=== PATIENT | male | born 1985 | race Caucasian/White ===

== ENCOUNTER 2022-08-15 00:57 | Observation (INO) | payer BC ==
[~2022-08-15] VITALS: Ht 182.9 cm; Wt 121.9 kg
[2022-08-15] MEDS ORDERED: dilTIAZem DRIP PRE-MIX 125 ML IV SCH (01:15)
[2022-08-15] MEDS ORDERED: dilTIAZem DRIP PRE-MIX 125 ML IV ONE (01:19)
[2022-08-15 01:21] LABS: BASOPHILS % (AUTO) 0 % (0-10); EOSINOPHILS # (AUTO) 0.2 10^3/uL (0.0-0.3); EOSINOPHILS % (AUTO) 3 % (0-10); HEMATOCRIT 45 % (40-54); HEMOGLOBIN 15.5 g/dL (13.3-17.7); LYMPHOCYTES # (AUTO) 2.8 10^3/uL (1.0-4.0); LYMPHOCYTES % (AUTO) 39 % (12-44); MEAN CORPUSCULAR HEMOGLOBIN 29 pg (25-34); MEAN CORPUSCULAR HGB CONC 35 g/dL (32-36); MEAN CORPUSCULAR VOLUME 85 fL (80-99); MEAN PLATELET VOLUME 11.9 fL (9.0-12.2); MONOCYTES # (AUTO) 0.8 10^3/uL (0.0-1.0); MONOCYTES % (AUTO) 11 % (0-12); NEUTROPHILS # (AUTO) 3.4 10^3/uL (1.8-7.8); NEUTROPHILS % (AUTO) 47 % (42-75); PLATELET COUNT 220 10^3/uL (130-400); WHITE BLOOD COUNT 7.2 10^3/uL (4.3-11.0)
[2022-08-15 01:31] LABS: ALBUMIN 4.7 GM/DL (3.2-4.5)
[2022-08-15 01:32] LABS: CHLORIDE 106 MMOL/L (98-107); POTASSIUM 3.9 MMOL/L (3.6-5.0); SODIUM 140 MMOL/L (135-145)
[2022-08-15 01:33] LABS: CALCIUM 9.8 MG/DL (8.5-10.1)
[2022-08-15 01:34] LABS: GLUCOSE 88 MG/DL (70-105)
[2022-08-15 01:35] LABS: CARBON DIOXIDE 23 MMOL/L (21-32)
[2022-08-15 01:36] LABS: BILIRUBIN,TOTAL 0.9 MG/DL (0.1-1.0)
[2022-08-15 01:38] LABS: ALKALINE PHOSPHATASE 70 U/L (40-136); GFR ESTIMATED 67
[2022-08-15 01:39] LABS: BUN/CREATININE RATIO 10
[2022-08-15 01:41] LABS: ALANINE AMINOTRANSFERASE 71 U/L (0-55); MAGNESIUM 2.1 MG/DL (1.6-2.4)
[2022-08-15] MEDS ORDERED: ASPIRIN 325 MG (5 GR) TABLET PO ONE (02:00)
[2022-08-15] MEDS ORDERED: APIXABAN 5 MG (ELIQUIS) TABLET PO ONE (02:00)
[2022-08-15 02:01] LABS: TSH (THYROID ANALYZER) 2.38 UIU/ML (0.35-4.94)
--- NOTE | 2022-08-15 02:04 | ED Cardiac General ---
History of Present Illness General Chief Complaint: Cardiac/General Problems Stated Complaint: RAPID HEARTBEAT Source: patient Exam Limitations: no limitations History of Present Illness Date Seen by Provider: Aug 15, 2022 Time Seen by Provider: 01:09 Initial Comments This 37-year-old gentleman presents to the emergency room with sudden onset of rapid palpitations around midnight when he got out of the shower. He denies any chest pain or shortness of breath. He is found to be in atrial fibrillation with RVR when placed on the monitor during assessment. He denies any prior history of episodes or diagnosis of atrial fibrillation. His only significant health history is sleep apnea for which she uses CPAP. His primary care provider is Dr. Madrid. Allergies and Home Medications Allergies Coded Allergies: No Known Drug Allergies (Unverified , 08/15/22) Patient Home Medication List Home Medication List Reviewed: Yes Review of Systems Review of Systems Constitutional: no symptoms reported EENTM: No Symptoms Reported Respiratory: No Symptoms Reported Cardiovascular: See HPI Gastrointestinal: No Symptoms Reported Genitourinary: No Symptoms Reported Musculoskeletal: no symptoms reported Skin: no symptoms reported Psychiatric/Neurological: No Symptoms Reported Endocrine: No Symptoms Reported Hematologic/Lymphatic: No Symptoms Reported Past Aaqfnjx-Jwkyix-Tqxleo Hx Patient Social History Tobacco Use?: No Use of E-Cig and/or Vaping dev: Yes E-Cig or Vaping type used: Nicotine Use of E-Cig and/or Vaping Mark: Current Everyday User Substance use?: No Alcohol Use?: Yes Alcohol Frequency: Once in a while Past Medical History Surgeries: Yes Orthopedic (Right tricep surgery) Respiratory: Yes Sleep Apnea Cardiac: No Neurological: No Reproductive Disorders: No Genitourinary: No Gastrointestinal: No Musculoskeletal: No Endocrine: No HEENT: No Cancer: No Psychosocial: No Integumentary: No Physical Exam Vital Signs Vital Signs - First Documented 08/15/22 01:08 Temp 36.8 Pulse 158 Resp 18 B/P (MAP) 149/109 (122) Pulse Ox 98 O2 Delivery Room Air Capillary Refill : Height, Weight, BMI Height: '" Weight: lbs. oz. kg; BMI Method: General Appearance: No Apparent Distress, WD/WN, Obese HEENT: PERRL/EOMI, Normal ENT Inspection Neck: Normal Inspection; No JVD Respiratory: Lungs Clear, Normal Breath Sounds, No Accessory Muscle Use Cardiovascular: No Edema, No Murmur, Irregularly Irregular, Tachycardia Gastrointestinal: Non Tender, Soft Extremity: Normal Inspection, No Pedal Edema Neurologic/Psychiatric: Alert, Oriented x3, No Motor/Sensory Deficits, Normal Mood/Affect Skin: Normal Color, Warm/Dry Progress/Results/Core Measures Results/Orders Lab Results Laboratory Tests Test 08/15/22 01:13 Range/Units White Blood Count 7.2 4.3-11.0 10^3/uL Red Blood Count 5.28 4.30-5.52 10^6/uL Hemoglobin 15.5 13.3-17.7 g/dL Hematocrit 45 40-54 % Mean Corpuscular Volume 85 80-99 fL Mean Corpuscular Hemoglobin 29 25-34 pg Mean Corpuscular Hemoglobin Concent 35 32-36 g/dL Red Cell Distribution Width 12.0 10.0-14.5 % Platelet Count 220 130-400 10^3/uL Mean Platelet Volume 11.9 9.0-12.2 fL Immature Granulocyte % (Auto) 0 % Neutrophils (%) (Auto) 47 42-75 % Lymphocytes (%) (Auto) 39 12-44 % Monocytes (%) (Auto) 11 0-12 % Eosinophils (%) (Auto) 3 0-10 % Basophils (%) (Auto) 0 0-10 % Neutrophils # (Auto) 3.4 1.8-7.8 10^3/uL Lymphocytes # (Auto) 2.8 1.0-4.0 10^3/uL Monocytes # (Auto) 0.8 0.0-1.0 10^3/uL Eosinophils # (Auto) 0.2 0.0-0.3 10^3/uL Basophils # (Auto) 0.0 0.0-0.1 10^3/uL Immature Granulocyte # (Auto) 0.0 0.0-0.1 10^3/uL Sodium Level 140 135-145 MMOL/L Potassium Level 3.9 3.6-5.0 MMOL/L Chloride Level 106 98-107 MMOL/L Carbon Dioxide Level 23 21-32 MMOL/L Anion Gap 11 5-14 MMOL/L Blood Urea Nitrogen 14 7-18 MG/DL Creatinine 1.40 H 0.60-1.30 MG/DL Estimat Glomerular Filtration Rate 67 BUN/Creatinine Ratio 10 Glucose Level 88 70-105 MG/DL Calcium Level 9.8 8.5-10.1 MG/DL Corrected Calcium 8.5-10.1 MG/DL Magnesium Level 2.1 1.6-2.4 MG/DL Total Bilirubin 0.9 0.1-1.0 MG/DL Aspartate Amino Transf (AST/SGOT) 38 H 5-34 U/L Alanine Aminotransferase (ALT/SGPT) 71 H 0-55 U/L Alkaline Phosphatase 70 40-136 U/L Total Protein 8.0 6.4-8.2 GM/DL Albumin 4.7 H 3.2-4.5 GM/DL TSH [place] Testing 2.38 0.35-4.94 UIU/ML My Orders Orders - ADRIENNE ALVES MD Ekg Tracing (08/15/22 01:07) Cbc With Automated Diff (08/15/22 01:15) Comprehensive Metabolic Panel (08/15/22 01:15) Magnesium (08/15/22 01:15) Thyroid Analyzer (08/15/22 01:15) Ed Iv/Invasive Line Start (08/15/22 01:15) Monitor-Rhythm Ecg Trace Only (08/15/22 01:15) Diltiazem Drip Pre-Mix (Cardizem Drip Pr (08/15/22 01:15) Diltiazem Injection (Cardizem Injection) (08/15/22 01:15) Chest 1 View, Ap/Pa Only (08/15/22 01:18) Diltiazem Drip Pre-Mix (Cardizem Drip Pr (08/15/22 01:19) Diltiazem Injection (Cardizem Injection) (08/15/22 01:19) Aspirin Tablet (Aspirin Tablet) (08/15/22 02:00) Apixaban Tablet (Eliquis Tablet) (08/15/22 02:00) Medications Given in ED Current Medications Medications Dose Ordered Sig/Toro Route Start Time Stop Time Status Last Admin Dose Admin Apixaban 5 mg ONCE ONCE PO 08/15/22 02:00 08/15/22 02:01 DC 08/15/22 02:47 5 MG Aspirin 325 mg ONCE ONCE PO 08/15/22 02:00 08/15/22 02:01 DC 08/15/22 02:48 325 MG Diltiazem HCl 10 mg ONCE ONCE IVP 08/15/22 01:15 08/15/22 01:18 DC 08/15/22 01:24 10 MG Vital Signs/I&O 08/15/22 08/15/22 08/15/22 01:08 01:24 01:25 Temp 36.8 Pulse 158 171 171 Resp 18 B/P (MAP) 149/109 (122) 147/116 147/116 Pulse Ox 98 O2 Delivery Room Air Blood Pressure Mean: 126 Progress Progress Note : Time: 02:09 Progress Note EKG confirmed A. fib with RVR. Work-up was otherwise relatively unremarkable. Patient had good response to Cardizem bolus and drip. He remains in atrial fibrillation with rate controlled. I discussed the case with Dr. Long who requested anticoagulation be initiated. Aspirin was also administered. Dr. Palma accepts admission. Initial ECG Impression Date: Aug 15, 2022 Initial ECG Impression Time: 01:03 Initial ECG Rate: 150 Initial ECG Rhythm: A Fib/Flutter Initial ECG Impression: Atrial Fibrillation w/RVR Comment Atrial fibrillation with RVR and PVCs. No ST elevation or depression. No abnormal intervals or axis deviation. Diagnostic Imaging Diagonstic Imaging: Xray Plain Films/CT/US/NM/MRI: chest Comments Chest x-ray viewed by me. Report not yet available. No acute abnormality appreciated. Departure Communication (Admissions) Time/Spoke to Admitting Phy: 02:02 Dr. Palma Time/Spoke to Consulting Phy: 02:00 Dr. Long Impression Primary Impression: Atrial fibrillation with RVR Additional Impression: New onset atrial fibrillation Disposition: ADMITTED INPATIENT Condition: Improved Admissions Decision to Admit Reason: Admit from ER (General) Decision to Admit/Date: Aug 15, 2022 Time/Decision to Admit Time: 02:00 Departure-Patient Inst. Referrals: SHADIA MADRID MD (PCP/Family) Primary Care Physician Copy Copies To 1: SHADIA MADRID MD, JOSHUA T MD Aug 15, 2022 02:04
[2022-08-15] MEDS ORDERED: dilTIAZem DRIP 125 MG/125 ML DRIP IV SCH (03:15)
[2022-08-15] MEDS ORDERED: NS IV 1000 ML 1,000 ML IV SCH (03:15)
[2022-08-15 03:29] VITALS: BP 120/85
[2022-08-15] MEDS ORDERED: LACTATED RINGERS 1,000 ML IV SCH (04:00)
[2022-08-15 04:13] LABS: BASOPHILS % (AUTO) 1 % (0-10); EOSINOPHILS # (AUTO) 0.2 10^3/uL (0.0-0.3); EOSINOPHILS % (AUTO) 3 % (0-10); HEMATOCRIT 43 % (40-54); HEMOGLOBIN 14.9 g/dL (13.3-17.7); LYMPHOCYTES # (AUTO) 2.8 10^3/uL (1.0-4.0); LYMPHOCYTES % (AUTO) 44 % (12-44); MEAN CORPUSCULAR HEMOGLOBIN 29 pg (25-34); MEAN CORPUSCULAR HGB CONC 35 g/dL (32-36); MEAN CORPUSCULAR VOLUME 85 fL (80-99); MEAN PLATELET VOLUME 11.8 fL (9.0-12.2); MONOCYTES # (AUTO) 0.6 10^3/uL (0.0-1.0); MONOCYTES % (AUTO) 9 % (0-12); NEUTROPHILS # (AUTO) 2.8 10^3/uL (1.8-7.8); NEUTROPHILS % (AUTO) 44 % (42-75); PLATELET COUNT 210 10^3/uL (130-400); WHITE BLOOD COUNT 6.4 10^3/uL (4.3-11.0)
[2022-08-15] MEDS ORDERED: LACTATED RINGERS 1,000 ML IV ONE (04:17)
[2022-08-15 04:34] LABS: BILIRUBIN,TOTAL 0.9 MG/DL (0.1-1.0); CREATININE SERUM 1.15 MG/DL (0.60-1.30); MAGNESIUM 2.1 MG/DL (1.6-2.4); PHOSPHORUS 4.1 MG/DL (2.3-4.7); POTASSIUM 4.1 MMOL/L (3.6-5.0); TOTAL PROTEIN 6.9 GM/DL (6.4-8.2)
--- NOTE | 2022-08-15 07:10 | Diagnostic Imaging Report ---
Indication: Chest pain. Comparison: None. Discussion: Single portable upright view of the chest was obtained. Normal heart size. No consolidation, pleural fluid, or pneumothorax. No osseous abnormality. Impression: 1. Negative portable chest. Dictated by: Dictated on workstation # [id number]
[2022-08-15] MEDS ORDERED: APIXABAN 5 MG (ELIQUIS) TABLET PO SCH (09:00)
--- NOTE | 2022-08-15 09:33 | Tele-ICU Progress Note ---
Subjective Date Seen by a Provider: Aug 15, 2022 Time Seen by a Provider: 09:27 Subjective/Events-last exam (Tele-ICU Physician , consultation) Available chart/ vitals / labs / Images reviewed H&P is from ER notes Patient's information available about PMH, allergy reviewed in EMR. ROS as per chart and RN report Video assessment done using teleICU camera, rest of exam as per RN Discussed with RN. Is a 37-year-old male with past medical history of obesity and sleep apnea and using CPAP on and off now presented to the emergency room with palpitations. He is found to have a atrial fibrillation with rapid ventricular rate. He is started on a Cardizem drip and this a.m. he is converted to normal sinus rhythm. Currently he denies any chest pain nausea vomiting dizziness. This is the first time he had a atrial fibrillation. He is started on eliquis. Review of Systems ROS PER RN Sepsis Event Evaluation Height, Weight, BMI Height: '" Weight: lbs. oz. kg; 36.43 BMI Method: Exam Exam Patient acknowledged, consented, and participated in this virtual visit which was conducted using real time audio/video Vital Signs Date Time Temp Pulse Resp B/P (MAP) Pulse Ox O2 Delivery O2 Flow Rate FiO2 08/15/22 08:00 93 9 130/98 (109) 97 Room Air 08/15/22 07:00 96 17 92/66 (75) 97 Room Air 08/15/22 07:00 106 08/15/22 06:00 108 12 118/76 (90) 98 Room Air 08/15/22 05:00 115 16 121/77 (92) 97 Room Air 08/15/22 03:45 112 13 113/82 (92) 98 Room Air 08/15/22 03:30 117 13 128/65 (86) 96 Room Air 08/15/22 03:29 125 120/85 08/15/22 03:21 105 08/15/22 03:15 36.0 109 24 120/85 (97) 97 Room Air 08/15/22 03:15 109 24 97 Room Air 08/15/22 03:03 36.8 111 16 114/85 98 Room Air 08/15/22 03:00 109 24 120/85 (97) 97 Room Air 08/15/22 01:25 171 147/116 08/15/22 01:24 171 147/116 08/15/22 01:08 36.8 158 18 149/109 (122) 98 Room Air I & O 08/15/22 07:00 Intake Total 1000 ml Output Total 550 ml Balance 450 ml Height & Weight Height: '" Weight: lbs. oz. kg; 36.43 BMI Method: General Appearance: No Apparent Distress, WD/WN, Obese HEENT: PERRL/EOMI, Normal ENT Inspection Neck: Normal Inspection; No JVD Respiratory: Lungs Clear, Normal Breath Sounds, No Accessory Muscle Use Cardiovascular: No Edema, No Murmur, Irregularly Irregular, Tachycardia Capillary Refill: Less Than 3 Seconds Extremity: Normal Inspection, No Pedal Edema Neurologic/Psychiatric: Alert, Oriented x3, No Motor/Sensory Deficits, Normal Mood/Affect Skin: Normal Color, Warm/Dry Other comments PE PER RN. Results Lab Laboratory Tests 08/15/22 01:13 08/15/22 04:03 Assessment/Plan Assessment/Plan 1. New onset atrial fibrillation with rapid ventricular rate now converted to normal sinus rhythm on diltiazem drip. 2. Obesity 3. History of sleep apnea not very compliant with the CPAP mask. Recommendations 1. Atrial fibrillation management per cardiology 2. Continue anticoagulant therapy 3. He is counseled to use CPAP mask regularly and lose weight. 4. Avoid smoking. Critical Care: Critically Ill Patient Time spent with patient (mins): 20 KELTON ROSA MD Aug 15, 2022 09:33
--- NOTE | 2022-08-15 09:58 | Consultation-Cardiology ---
HPI-Cardiology Cardiology Consultation Date of Consultation 08/15/22 Date of Admission Time Seen by Provider: 09:50 Indication: Atrial fibrillation HPI 37-year-old gentleman with history of sleep apnea. Was in his usual state of health when he started to have palpitation and he felt his heart racing. Came into the emergency room and noted to be in atrial fibrillation with rapid ventricular response. No previous history of atrial fibrillation no previous history of arrhythmia. He was started on Cardizem drip and earlier this morning he converted to sinus rhythm. On my evaluation was feeling better, denied any chest pain or shortness of breath or palpitation. No syncope or near syncopal episodes. Home Medications & Allergies Allergies: Coded Allergies: No Known Drug Allergies (Unverified , 08/15/22) Home Medication List Reviewed: Yes RHT-Chxgul-Cohbgz Hx Patient Social History Marital Status: Employed/Student: employed Have you traveled recently?: No Alcohol Use?: Yes Past Medical History Obstructive sleep apnea Family Medical History Family Medical Hx Noncontributory Review of Systems-General Review of Systems Constitutional: no symptoms reported, see HPI EENTM: see HPI Respiratory: see HPI; No cough, No dyspnea on exertion, No hemoptysis, No orthopnea, No phlegm, No short of breath, No stridor, No wheezing, No other Cardiovascular: see HPI; No chest pain, No edema, No Hx of Intervention; palpitations; No syncope, No vascular heart diseas, No other Gastrointestinal: see HPI Genitourinary: see HPI Musculoskeletal: no symptoms reported, see HPI Skin: no symptoms reported, see HPI Psychiatric/Neurological: No Symptoms Reported, See HPI Reviewed Test Results Reviewed Test Results Lab Laboratory Tests Test 08/15/22 01:13 08/15/22 04:03 Range/Units White Blood Count 7.2 6.4 4.3-11.0 10^3/uL Red Blood Count 5.28 5.07 4.30-5.52 10^6/uL Hemoglobin 15.5 14.9 13.3-17.7 g/dL Hematocrit 45 43 40-54 % Mean Corpuscular Volume 85 85 80-99 fL Mean Corpuscular Hemoglobin 29 29 25-34 pg Mean Corpuscular Hemoglobin Concent 35 35 32-36 g/dL Red Cell Distribution Width 12.0 12.1 10.0-14.5 % Platelet Count 220 210 130-400 10^3/uL Mean Platelet Volume 11.9 11.8 9.0-12.2 fL Immature Granulocyte % (Auto) 0 0 % Neutrophils (%) (Auto) 47 44 42-75 % Lymphocytes (%) (Auto) 39 44 12-44 % Monocytes (%) (Auto) 11 9 0-12 % Eosinophils (%) (Auto) 3 3 0-10 % Basophils (%) (Auto) 0 1 0-10 % Neutrophils # (Auto) 3.4 2.8 1.8-7.8 10^3/uL Lymphocytes # (Auto) 2.8 2.8 1.0-4.0 10^3/uL Monocytes # (Auto) 0.8 0.6 0.0-1.0 10^3/uL Eosinophils # (Auto) 0.2 0.2 0.0-0.3 10^3/uL Basophils # (Auto) 0.0 0.0 0.0-0.1 10^3/uL Immature Granulocyte # (Auto) 0.0 0.0 0.0-0.1 10^3/uL Sodium Level 140 141 135-145 MMOL/L Potassium Level 3.9 4.1 3.6-5.0 MMOL/L Chloride Level 106 109 H 98-107 MMOL/L Carbon Dioxide Level 23 20 L 21-32 MMOL/L Anion Gap 11 12 5-14 MMOL/L Blood Urea Nitrogen 14 12 7-18 MG/DL Creatinine 1.40 H 1.15 0.60-1.30 MG/DL Estimat Glomerular Filtration Rate 67 85 BUN/Creatinine Ratio 10 10 Glucose Level 88 106 H 70-105 MG/DL Calcium Level 9.8 9.0 8.5-10.1 MG/DL Corrected Calcium 9.0 8.5-10.1 MG/DL Magnesium Level 2.1 2.1 1.6-2.4 MG/DL Total Bilirubin 0.9 0.9 0.1-1.0 MG/DL Aspartate Amino Transf (AST/SGOT) 38 H 35 H 5-34 U/L Alanine Aminotransferase (ALT/SGPT) 71 H 65 H 0-55 U/L Alkaline Phosphatase 70 65 40-136 U/L Total Protein 8.0 6.9 6.4-8.2 GM/DL Albumin 4.7 H 4.0 3.2-4.5 GM/DL TSH [place] Testing 2.38 0.35-4.94 UIU/ML Phosphorus Level 4.1 2.3-4.7 MG/DL Physical Exam Physical Exam Vital Signs Vital Signs - First Documented 08/15/22 01:08 Temp 36.8 Pulse 158 Resp 18 B/P (MAP) 149/109 (122) Pulse Ox 98 O2 Delivery Room Air Capillary Refill : Less Than 3 Seconds Height, Weight, BMI Height: '" Weight: lbs. oz. kg; 36.43 BMI Method: General Appearance: No Apparent Distress, WD/WN, Obese Eyes: Bilateral Eye Normal Inspection, Bilateral Eye PERRL, Bilateral Eye EOMI HEENT: PERRL/EOMI, Normal ENT Inspection Neck: Normal Inspection; No JVD Respiratory: Lungs Clear, Normal Breath Sounds, No Accessory Muscle Use Cardiovascular: Regular Rate, Rhythm, No Edema, No Murmur Gastrointestinal: Non Tender, Soft Back: Normal Inspection, No CVA Tenderness, No Vertebral Tenderness Extremity: Normal Inspection, No Pedal Edema Neurologic/Psychiatric: Alert, Oriented x3, No Motor/Sensory Deficits, Normal Mood/Affect Skin: Normal Color, Warm/Dry Lymphatic: No Adenopathy A/P-Cardiology Admission Diagnosis Paroxysmal atrial fibrillation Tachycardia Gastroesophageal reflux disease Obstructive sleep apnea Assessment/Plan Paroxysmal atrial fibrillation, Tachycardia, converted to sinus rhythm on Cardizem. Currently in sinus rhythm. I will stop Cardizem drip We discussed in length the causes for atrial fibrillation and treatment option, at this point I will evaluate 2D echocardiogram, will start aspirin 325 mg daily and educated on avoiding caffeine, alcohol and tobacco products in addition to weight loss and exercise [id number] score 0, started on Eliquis in the emergency room, we will start her on aspirin for now. Gastroesophageal reflux disease maintained on pantoprazole Tobaccoism, vaping, educated on avoiding tobacco products Obstructive sleep apnea using CPAP BMI 36, educated on weight loss Okay for discharge and follow-up as an outpatient BECCA SANDRA MD Aug 15, 2022 09:58
[2022-08-15] MEDS ORDERED: PANTOPRAZOLE 40 MG (PROTONIX) TAB PO SCH (10:00)
[2022-08-15] MEDS ORDERED: ASPIRIN 325 MG (5 GR) TABLET PO SCH (10:00)
[2022-08-15] MEDS ORDERED: ASPI-808 PO (13:03)
[2022-08-15] MEDS ORDERED: PANT40TA52 PO (13:05)
--- NOTE | 2022-08-15 13:15 | Short Stay Summary-Hospitalist ---
History of Present Illness HPI/Chief Complaint Wagner Sarmiento is a 37 year old male with PMH GERD, BRAD, who presented with palpitations. He denies chest pain. He denies shortness of breath. He denies nausea and vomiting. He denies diaphoresis. He does not have any history of hypertension, diabetes, heart failure, or stroke. The only medicine he takes is for heartburn. Source: patient Exam Limitations: no limitations Date Seen 08/15/22 Time Seen by a Provider: 09:30 Attending Physician Eduard Madrid MD PCP Admitting Physician: Gilbert Park MD Attending Physician: Gilbert Park MD Referring Physician Date of Admission Aug 15, 2022 at 02:02 Home Medications & Allergies Home Medications Reviewed patient Home Medication Reconciliation performed by pharmacy medication reconciliations prosthetics technician and/or nursing. Patients Allergies have been reviewed. Allergies Allergies Coded Allergies No Known Drug Allergies ([id number]/1/22) Past Jkykzdl-Owbydi-Ajhcya Hx Patient Social History Marrital Status: Employed/Student: employed Tobacco Use?: No Use of E-Cig and/or Vaping dev: Yes E-Cig or Vaping type used: Nicotine Use of E-Cig and/or Vaping Mark: Current Everyday User Substance use?: No Alcohol Use?: Yes Alcohol type: Hard Liquor Alcohol Frequency: Rarely Pt feels they are or have been: No Immunizations Up To Date Tetanus Booster (TDap): Unknown Current Status Advance Directives: No Communicates: Verbally Primary Language: Niuean Preferred Spoken Language: Niuean Is interpretation needed?: No Implanted or Applied Medical D: None Past Medical History Surgeries: Orthopedic (Right tricep surgery) Sleep Apnea Family Medical History No Pertinent Family Hx Review of Systems Constitutional: no symptoms reported EENTM: no symptoms reported Respiratory: no symptoms reported Cardiovascular: palpitations Gastrointestinal: no symptoms reported Physical Exam Physical Exam Vital Signs Vital Signs - First Documented 08/15/22 01:08 Temp 36.8 Pulse 158 Resp 18 B/P (MAP) 149/109 (122) Pulse Ox 98 O2 Delivery Room Air Capillary Refill : Less Than 3 Seconds Height, Weight, BMI Height: '" Weight: lbs. oz. kg; 36.43 BMI Method: General Appearance: No Apparent Distress, WD/WN, Obese Eyes: Bilateral Eye Normal Inspection, Bilateral Eye PERRL, Bilateral Eye EOMI HEENT: PERRL/EOMI, Pharynx Normal Neck: Normal Inspection, Supple Respiratory: Lungs Clear, Normal Breath Sounds, No Respiratory Distress Cardiovascular: Regular Rate, Rhythm, No Edema, No Murmur Gastrointestinal: Normal Bowel Sounds, Non Tender, Soft Extremity: Normal Inspection, Non Tender, No Pedal Edema Neurologic/Psychiatric: Alert, Oriented x3, No Motor/Sensory Deficits, Normal Mood/Affect Skin: Normal Color, Warm/Dry Results Results/Procedures Labs Laboratory Tests 08/15/22 01:13 08/15/22 04:03 Patient resulted labs reviewed. Imaging: Reviewed Imaging Report Short Stay Diagnosis Discharge Diagnosis-Short Stay Admission Diagnosis AFib with RVR Final Discharge Diagnosis AFib with RVR Conclusion Plan New onset AFib with RVR Required IV Cardizem initially Converted back to normal sinus rhythm [id number] risk 0 Begin daily ASA No rate/rhythm medications recommended Avoid tobacco/alcohol/caffeine Follow up in Cardiology clinic in 2 weeks Diagnosis/Problems Diagnosis/Problems (1) New onset atrial fibrillation Status: Acute (2) Atrial fibrillation with RVR Status: Acute (3) Obesity Status: Chronic GILBERT PARK MD Aug 15, 2022 13:15
== END 2022-08-15 13:08 | disposition home or self-care (01) ==
LOC: ER 00:59 → UNDOADMOB 02:02 → ICU 02:02 → UNDODISOB 13:30
PROVIDERS: ADMIT Internal Medicine; ATTEND Internal Medicine
DX: I48.91 Unspecified atrial fibrillation (principal); E66.9 Obesity, unspecified; Z68.36 Body mass index [BMI] 36.0-36.9, adult; F17.210 Nicotine dependence, cigarettes, uncomplicated
CPT/HCPCS: 36415; 71045; 80053; 83735; 84100; 84443; 85025; 87081; 93005; 93041; 93306; 96361; 96374; 96376; G0378

== ENCOUNTER → 2022-09-16 | Outpatient (CLI) | payer BC ==
[~2022-09-16] MED LIST: ASPI-808 PO; PANT40TA52 PO
[2022-09-16 10:51] VITALS: BP 129/88
--- NOTE | 2022-09-16 10:59 | Cardiology Stress Test Report ---
Stress Test Report Date of Procedure/Referring: Date of Procedure: Sep 16, 2022 PCP Eduard Sweet MD Admitting Physician Admitting Physician: Attending Physician: Rai Long MD Indications: Palp Baseline Heart Rate: 86 Baseline Blood Pressure: Blood Pressure Systolic: 129 Blood Pressure Diastolic: 88 Baseline EKG: Baseline EKG: NSR Summary/Conclusion: Summary: In summary, the patient started exercising with a baseline heart rate, blood pressure and EKG mentioned above Patient was able to exercise for a total of 7 minutes on Ray protocol, METs 8.5 Maximum heart rate 168 Maximum blood pressure 200/57 Stress EKG, Minimal nondiagnostic changes Recovery EKG , Return to baseline Conclusion: 1. Good exercise tolerance for a total of 7 minutes on Ray protocol, 8.5 METs, achieving 90 percent of maximum expected heart rate 2. Minimal nondiagnostic EKG changes with exercise returned to baseline during recovery 3. No arrhythmia was noted 4. Hypertensive response to exercise with peak blood pressure 200/57 return to baseline during recovery Copy Copies To 1: EDUARD SWEET MD, BASHAR J MD Sep 16, 2022 10:59
== END ==
LOC: CARD 10:18
PROVIDERS: ATTEND Internal Medicine Cardiovascular Disease
DX: R00.2 Palpitations (principal); R07.9 Chest pain, unspecified
CPT/HCPCS: 93017